=== PATIENT | male | born 1955 | race Two or more races ===

== ENCOUNTER → 2017-07-27 | Outpatient (CLI) | payer OTHER ==
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
== END | disposition home or self-care (01) ==
LOC: KCIC 13:36
PROVIDERS: ATTEND Pediatrics
DX: M47.894 Other spondylosis, thoracic region (principal)
CPT/HCPCS: 71020

== ENCOUNTER → 2017-07-31 | Outpatient (CLI) | payer OTHER ==
--- NOTE | 2017-07-31 16:20 | RAD ---
Exam performed: Carotid Doppler. Clinical indication: TIA Date of Service: 07/31/17. Comparison :None available. Technique: Real-time grayscale and Doppler evaluation of the carotid system was performed and images are obtained. Color flow and spectral analysis was observed. Findings: There is no significant atheromatous plaquing noted. Doppler interrogation reveals normal waveforms and velocities as follows . Peak systolic velocity within the right common carotid artery measures 76 cm/sec whereas on the left measures 97 cm/sec . The peak systolic velocity within the right ICA measures 63 cm/sec whereas on the left measures 63 cm/sec. The ICA to CCA ratio on the right measures 0.73 whereas on the left measures 0.72. There is antegrade flow in both vertebral arteries. Impression: 1.No definite plaquing or carotid stenosis involving both carotid arteries. Note: Stenosis calculations for CT, MR and conventional angiography are based upon determination of the distal ICA diameter in accordance with the NASCET methodology. Stenosis calculations for doppler studies are derived from validated velocity criteria which are known to correlate with NASCET methodology of determining stenosis.
== END | disposition home or self-care (01) ==
LOC: US 15:22
PROVIDERS: ATTEND Specialist
DX: G45.9 Transient cerebral ischemic attack, unspecified (principal)
CPT/HCPCS: 93880

== ENCOUNTER 2020-02-24 09:38 | Emergency (ER) | payer OTHER, MEDICAID ==
[~2020-02-24] VITALS: Ht 165.1 cm; Wt 81.0 kg
[2020-02-24 09:51] VITALS: BP 142/85
[2020-02-24] MEDS ORDERED: NAPR500T8 PO (10:37)
--- NOTE | 2020-02-24 13:42 | PHYS DOC ---
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 No medications or therapies prior to ED arrival. Patient has not been evaluated for this condition. No other acute symptoms or complaints` [] Review of Systems Review of Systems ROS as per HPI All other systems were reviewed and found to be within normal limits, except as documented in this note. Allergies Allergies Allergies Coded Allergies Type Severity Reaction Last Updated Verified No Known Drug Allergies 02/24/20 No Physical Exam Physical Exam Constitutional: Well developed, well nourished, no acute distress, non-toxic appearance. [] HENT: Normocephalic, atraumatic, bilateral external ears normal, oropharynx moist, no oral exudates, nose normal. [] Eyes: PERRLA, EOMI, conjunctiva normal, no discharge. [] Neck: Normal range of motion. [] Cardiovascular:Heart rate regular rhythm, no murmur [] Extremities: Right knee, prepatellar swelling, minimal tenderness. No erythema induration or joint effusion.. [] Neurologic: Alert and oriented X 3, normal motor function, normal sensory function, no focal deficits noted. [] Psychologic: Affect normal, judgement normal, mood normal. [] Current Patient Data Vital Signs Vital Signs Date Time Temp Pulse Resp B/P (MAP) Pulse Ox O2 Delivery O2 Flow Rate FiO2 02/24/20 09:51 97.8 62 16 142/85 (104) 98 Room Air 97.8 EKG EKG [] Radiology/Procedures Radiology/Procedures [] Course & Med Decision Making Course & Med Decision Making Pertinent Labs and Imaging studies reviewed. (See chart for details) [Prepatellar swelling consistent with bursitis. Recommend supportive care with PCP follow-up.] Dragon Disclaimer Dragon Disclaimer This electronic medical record was generated, in whole or in part, using a voice recognition dictation system. Departure Departure Impression: Primary Impression: Prepatellar bursitis, right knee Disposition: HOME, SELF-CARE Condition: GOOD Patient Instructions: Prepatellar Bursitis with Rehab-Sports[facility] Additional Instructions: Please wrap knee and take naproxen twice daily. Avoid kneeling and follow-up with local primary care doctor in 1 week. Scripts Naproxen (NAPROXEN) 500 Mg Tablet.dr 1 TAB PO BID for 30 Days, #60 TAB 2 Refills Prov: LUZ ELDER DO 02/24/20 LUZ ELDER DO February 24, 2020 13:42
== END 2020-02-24 10:48 | disposition home or self-care (01) ==
LOC: ER 09:38
DX: M70.41 Prepatellar bursitis, right knee (principal); I10 Essential (primary) hypertension; E78.00 Pure hypercholesterolemia, unspecified; Y93.89 Activity, other specified
CPT/HCPCS: 99282; 99283